=== PATIENT | female | born 1955 | race Caucasian/White ===

== ENCOUNTER 2019-10-07 09:19 | Day surgery (SDC) | payer MEDICARE, OTHER ==
[2019-10-05 13:03] VITALS: BMI 28.8
[~2019-10-07 09:19] MED LIST: ALPRAZolam 0.25 MG TAB PO PRN; ALPRAZolam 0.5 MG TAB PO PRN; ASPIRIN 325 MG TAB PO ONE; ATORVASTATIN 80 MG TAB PO ONE; NITROGLYCERIN SL TABS 0.4 MG TAB SUBLINGUAL PRN; SODIUM CHLORIDE 0.9% 1,000 ML in EMPTY BAG 1 BAG IV ONE
[2019-10-07] MEDS ORDERED: SODIUM CHLORIDE 0.9% 1,000 ML IV ONE (09:40)
[2019-10-07 10:03] LABS: Glucose,Whole Blood 140 mg/dL (75-99)
[2019-10-07 10:41] VITALS: RESP 16; TEMP 97.9
[2019-10-07] MEDS ORDERED: LIDOCAINE 1% INJ 10MG/ML (20 ML MDV) ONE (10:41)
[2019-10-07] MEDS ORDERED: VERAPAMIL 2.5 MG/ML 2 ML AMP ONE (10:41)
[2019-10-07] MEDS ORDERED: MIDAZOLAM 2 MG/2 ML VIAL IV ONE (11:10)
[2019-10-07] MEDS ORDERED: LIDOCAINE 1% INJ 10MG/ML (20 ML MDV) SQ ONE (11:12)
[2019-10-07] MEDS: VERAPAMIL SYRINGE (5 MG/10 ML) INTRAARTER ONE ×2 (11:13→11:27)
[2019-10-07] MEDS ORDERED: HEPARIN SODIUM 1,000 UN/ML (10ML VL) IV ONE (11:16)
[2019-10-07] MEDS ORDERED: IOPAMIDOL-370 100ML BTL INJ ONE (11:29)
[2019-10-07] MEDS ORDERED: NITROGLYCERIN 1000MCG/10ML SYRINGE INTRAARTER ONE (11:29)
[2019-10-07] MEDS ORDERED: SODIUM CHLORIDE 0.9% 1,000 ML IV SCH ×2 (11:40→11:45)
[2019-10-07] MEDS ORDERED: LOSARTAN 25 MG TAB PO STA (11:46)
[2019-10-07 18:27] VITALS: BP 128/71; PULSE 63
--- NOTE | 2019-10-07 22:01 | CC ---
CARDIAC CATHETERIZATION REPORT DATE OF SERVICE: 10/07/2019. PROCEDURE: Left heart catheterization and coronary angiography. PERFORMED BY: Dr. Jovi Sloan. Moderate conscious sedation time was 21 minutes. Patient was administered Versed. Oxygen saturation, hemodynamics and EKG were monitored closely. CLINICAL INFORMATION: Mrs. Susanna Simons is a 64-year-old lady with a history of hypertension, hyperlipidemia and type 2 diabetes. She had a negative stress test but continues to have chest heaviness and pressure responsive to sublingual nitroglycerin. After due discussion, even though stress test was negative, given her persistent symptoms, she was advised coronary angiography. Risks, benefits, options and rationale were explained. PROCEDURE NOTE: Under local anesthesia and strict aseptic precautions, a 6-Turkish introducer was placed in the right radial artery. Using a JR4 and a JL3.0 catheter, I was able to perform coronary angiography. The same right Doris catheter was used to check LV pressure, but LV gram was not performed. Sheath was taken out, TR band applied as per protocol. Saturation in the fingers of the right hand was 94%. Patient tolerated the procedure well without complications. CARDIAC CATHETERIZATION FINDINGS: The left ventricular end-diastolic pressure was about 15 mmHg without any gradient across the aortic valve. RIGHT CORONARY ARTERY: Large dominant vessel. No significant disease. Distally it gives off a PDA and a small PLV. No significant disease in the distal RCA or its branches. LEFT MAIN CORONARY ARTERY: Short, patent, disease-free vessel that bifurcates into LAD and circumflex. LEFT ANTERIOR DESCENDING CORONARY ARTERY: Good-caliber vessel extends along the anterior wall, gives off septal and diagonal branches, runs all the way to the apex, has a sizable amount of myocardium being supplied by it, but no significant disease in the LAD. LEFT POSTERIOR CIRCUMFLEX CORONARY ARTERY: Nondominant vessel gives off a small first obtuse marginal, two good-sized obtuse marginals, and a distal posterolateral branch. Minor irregularities. No significant disease noted. LEFT VENTRICULOGRAM: Left ventriculogram was not performed. FINAL IMPRESSION: This patient has slightly elevated filling pressures. No gradient across the aortic valve. A right-dominant system. No significant obstructive CAD. RECOMMENDATIONS: I am recommending that we continue medical therapy with risk factor modifications. I will add losartan 25 mg daily to her regimen. Continue all the other medications, including statins. Patient will be discharged later on today and I will see her in the office on October 13. The findings were explained in detail to the patient as well as her family members. The patient does not speak much Icelandic, and therefore this discussion happened in the presence of her family as well. I expect that she will be discharged later today if she remains stable. PATRICK / CARY: [id number] /
== END 2019-10-07 16:55 | disposition home or self-care (01) ==
LOC: CATHCVL 09:19
PROVIDERS: ATTEND Internal Medicine Interventional Cardiology
DX: I20.0 Unstable angina (principal); I10 Essential (primary) hypertension; E78.2 Mixed hyperlipidemia; E78.00 Pure hypercholesterolemia, unspecified; R60.0 Localized edema; Z87.891 Personal history of nicotine dependence; E03.9 Hypothyroidism, unspecified; E11.9 Type 2 diabetes mellitus without complications; E66.9 Obesity, unspecified; Z68.27 Body mass index [BMI] 27.0-27.9, adult; K21.9 Gastro-esophageal reflux disease without esophagitis; Z79.84 Long term (current) use of oral hypoglycemic drugs; Z79.890 Hormone replacement therapy; Z79.899 Other long term (current) drug therapy
CPT/HCPCS: 93458; C1769 ×2; C1894; J2250; J2001; J1644; Q9967